=== PATIENT | female | born 1965 | race Caucasian/White ===

== ENCOUNTER 2021-12-03 08:47 | Outpatient (REF) | payer OTHER, SELFPAY ==
[2021-12-03 10:32] LABS: MANUAL DIFF FLAG NO
[2021-12-03 10:35] LABS: Basophils Absolute Auto 0.1 X10*3/uL (0.0-0.2); Basophils Percent Auto 1.4 % (0-2); Eosinophils Absolute Auto 0.2 X10*3/uL (0.0-0.4); Eosinophils Percent Auto 4.8 % (0-4); Hematocrit 37.3 % (37.0-47.0); Hemoglobin 12.5 g/dl (12.0-16.0); Imm Gran Abs Auto 0.01 X10*3/uL (0.00-0.03); Imm Gran Pct Auto 0.2 % (0.0-0.4); Lymphocytes Absolute Auto 1.7 X10*3/uL (1.2-4.9); Lymphocytes Percent Auto 35.4 % (20-40); Mean Corpuscular HGB Conc 33.5 g/dl (31.0-35.0); Mean Corpuscular Hemoglobin 29.8 pg (27.0-33.0); Mean Corpuscular Volume 88.8 fL (80.0-98.0); Mean Platelet Volume 10.1 fL (9.4-12.3); Monocytes Absolute Auto 0.3 X10*3/uL (0.1-1.2); Monocytes Percent Auto 6.2 % (2-11); Neutrophils Absolute Auto 2.5 x10*3/uL (2.0-8.3); Platelet Count 329 X10*3/uL (160-400); Red Cell Distribution Width 11.9 % (11.0-16.0); White Blood Count 4.8 X10*3/uL (4.8-10.8)
[2021-12-03 10:46] LABS: Anion Gap 13 (12-20); Blood Urea Nitrogen 11 mg/dL (9-16); Calcium 9.9 mg/dL (8.4-10.2); Carbon Dioxide 26 mmol/L (22-29); Chloride 106 mmol/L (96-108); Cholesterol 155 mg/dL; Estimated Glomerular Filt Rate > 60; Glucose Random 99 mg/dL (60-115); Sodium 141 mmol/L (135-145)
[2021-12-03 10:52] LABS: Estimated Average Glucose 111 mg/dL; Hemoglobin A1c % 5.5 %
== END 2021-12-03 08:48 | disposition home or self-care (01) ==
LOC: HO.WFDLDS 08:47
PROVIDERS: Visit Provider Internal Medicine
DX: Z83.3 Family history of diabetes mellitus (principal)
CPT/HCPCS: 36415; 80048; 82465; 83036; 85025

== ENCOUNTER 2023-02-07 12:33 | Outpatient (REF) | payer OTHER, SELFPAY ==
[2023-02-07 13:09] LABS: MANUAL DIFF FLAG NO
[2023-02-07 13:22] LABS: Basophils Absolute Auto 0.1 X10*3/uL (0.0-0.2); Basophils Percent Auto 0.9 % (0-2); Eosinophils Absolute Auto 0.3 X10*3/uL (0.0-0.4); Eosinophils Percent Auto 3.3 % (0-4); Hematocrit 39.3 % (37.0-47.0); Hemoglobin 13.2 g/dl (12.0-16.0); Imm Gran Abs Auto 0.02 X10*3/uL (0.00-0.03); Imm Gran Pct Auto 0.2 % (0.0-0.4); Lymphocytes Absolute Auto 1.5 X10*3/uL (1.2-4.9); Lymphocytes Percent Auto 17.3 % (20-40); Mean Corpuscular HGB Conc 33.6 g/dl (31.0-35.0); Mean Corpuscular Hemoglobin 29.7 pg (27.0-33.0); Mean Corpuscular Volume 88.5 fL (80.0-98.0); Mean Platelet Volume 9.3 fL (9.4-12.3); Monocytes Absolute Auto 0.4 X10*3/uL (0.1-1.2); Monocytes Percent Auto 4.9 % (2-11); Neutrophils Absolute Auto 6.2 x10*3/uL (2.0-8.3); Neutrophils Percent Auto 73.4 % (45-73); Platelet Count 321 X10*3/uL (160-400); Red Blood Count 4.44 X10*6/uL (4.20-5.50); White Blood Count 8.5 X10*3/uL (4.8-10.8)
[2023-02-07 13:26] LABS: Estimated Average Glucose 108 mg/dL; Hemoglobin A1c % 5.4 %
[2023-02-07 14:23] LABS: Alanine Aminotransferase 31 U/L (0-31); Albumin Level 4.8 g/dL (3.5-5.0); Alkaline Phosphatase 67 U/L (39-117); Anion Gap 16 (12-20); Aspartate Amino Transferase 23 U/L (5-31); Bilirubin Total 0.6 mg/dL (0.0-1.0); Blood Urea Nitrogen 7 mg/dL (9-16); Calcium 10.3 mg/dL (8.4-10.2); Carbon Dioxide 24 mmol/L (22-29); Chloride 107 mmol/L (96-108); Estimated Glomerular Filt Rate > 60; Glucose Random 100 mg/dL (60-115); Potassium 4.1 mmol/L (3.3-5.1); Sodium 143 mmol/L (135-145)
[2023-02-08 05:53] LABS: Lyme Abs Screen <0.90 index
== END 2023-02-07 12:34 | disposition home or self-care (01) ==
LOC: HO.10HDL 12:33
PROVIDERS: Visit Provider Internal Medicine
DX: R73.03 Prediabetes (principal); T14.8XXA Other injury of unspecified body region, initial encounter; W57.XXXA Bitten or stung by nonvenomous insect and other nonvenomous arthropods, initial encounter
CPT/HCPCS: 36415; 80053; 83036; 85025; 86617; 86618

== ENCOUNTER 2023-08-29 11:44 | Outpatient (REF) | payer OTHER, SELFPAY ==
[2023-08-30 07:15] LABS: HBS Num1 152.76 mIU/mL (0-7.99); ~Hepatitis B Surface Antibody REACTIVE (Nonreactive)
[2023-08-31 07:33] LABS: Mumps Virus IgG Antibody <9.00 AU/mL; Rubeola IgG (Measles) >300.00 AU/mL
== END 2023-08-29 11:45 | disposition home or self-care (01) ==
LOC: HO.10HDL 11:44
PROVIDERS: Visit Provider Internal Medicine
DX: Z01.84 Encounter for antibody response examination (principal)
CPT/HCPCS: 36415; 86706; 86735; 86765; 86787

== ENCOUNTER 2024-07-24 08:09 | Outpatient (REF) | payer BC, SELFPAY ==
--- NOTE | ~2024-07-24 | PE_ITS ---
EXAMINATION: Fluorine-18 FDG PET/CT Scan CLINICAL INDICATION: Initial treatment management. Multiple pulmonary nodules. PROCEDURE: 65 minutes following the intravenous administration of 15.0 mCi of fluorine 18 FDG, images from the base of the skull to the mid thighs were obtained using a combined PET/CT scanner with CT scan based attenuation correction. No oral contrast was administered. No intravenous contrast was administered. Transverse, coronal, sagittal, and volume reconstruction projections were obtained. The patient's blood glucose as determined by a finger stick, was 103 mg/dl immediately prior to injection. Total CT exam dose-length product 564.08 mGy-cm * These CT images were obtained using dose optimization techniques as appropriate, variously including the following: Automated exposure control * Adjustment of mA and/or kV according to patient size (this includes techniques or standardized protocols for targeted exams where dose is matched to indication/reason for exam; i.e. extremities or head) * Use of iterative reconstruction technique COMPARISON: No previous PET CT scan is available for comparison. CT scan of the chest dated 03/27/2017 is available for comparison. The report of a more recent CT scan of the chest dated 07/13/2024, performed at [facility] is available, but the images from that study are not available for review. FINDINGS: (Slice numbers described in this report are numbered superiorly to inferiorly with slice #1 in the head) NECK AND VISUALIZED HEAD: No foci of abnormal FDG activity are noted. The distribution of FDG activity is physiological. There is no cervical lymphadenopathy. THORAX: Multiple pulmonary nodules are present involving all lung lobes. The largest of these are FDG avid. These include a posterior pleural-based left lower lobe nodule showing SUVmax 5.7, slice 92/267 measuring 1.5 x 0.9 cm in largest transverse dimensions; a posterolateral left lower lobe nodule showing SUVmax 3.9, slice 82/267 measuring 1.3 x 0.8 cm in largest transverse dimensions; a pleural-based anterolateral right upper lobe nodule showing SUVmax 4.2, slice 67/267 measuring 0.9 x 0.6 cm in largest transverse dimensions; and a lateral right middle lobe nodule showing SUVmax 2.9, slice 88/267 measuring 0.9 x 0.8 cm in largest transverse dimensions. Multiple additional nodules are present. There is no pleural or pericardial fluid or pneumothorax. There is a confluent mass of FDG avid lymph nodes in the right axilla showing SUVmax 7.3, slice 72/267. This measures 3.2 x 1.5 cm in largest transverse dimensions. A few additional subcentimeter right axillary lymph nodes are too small to be characterized on the FDG PET images. There is no left axillary lymphadenopathy, or mediastinal lymphadenopathy. ABDOMEN AND PELVIS: There are no foci of abnormal FDG activity in the abdomen or pelvis. The liver and spleen are unremarkable. A densely peripherally calcified gallbladder calculus is present measuring 3.0 x 2.8 cm in largest transverse dimensions and approximately 5.5 cm cephalocaudad. There is no associated abnormal FDG activity in the gallbladder. The kidneys, adrenal glands, and pancreas are unremarkable. There is mild FDG activity throughout the gastrointestinal tract without a suspicious focal component, likely physiological. There is diverticulosis without evidence of diverticulitis. The hollow viscera are otherwise unremarkable. The pelvic organs are unremarkable. There is no retroperitoneal, mesenteric, pelvic or inguinal lymphadenopathy. MUSCULOSKELETAL: There are no foci of abnormal FDG activity in the osseous structures. There is mildly increased FDG activity in both shoulders, most prominently in the right glenohumeral articulation, likely arthritic. There is a mild thoracolumbar scoliosis with lumbar convexity to the left. There are degenerative changes in the spine but no suspicious sclerotic or lytic lesions are visualized. VASCULAR: No significant abnormalities are present. Reference SUVmax Levels: Mediastinal Blood Pool: 1.6, Slice 78/267 Liver: 3.3, Slice 103/267 PET/PET CT fusion skull to thigh IMPRESSION: 1. Multiple FDG avid pulmonary nodules are present, as well as additional nodules which are too small to be characterized on the FDG PET images. These are most consistent with malignant metastatic disease. 2. FDG avid right axillary lymph node mass is also likely metastatic in etiology. This would be amenable to ultrasound-guided fine-needle aspirate or excisional biopsy. 3. No additional abnormalities suspicious for other metastatic or malignant lesions are noted. 4. A large gallbladder calculus is present. This could be further characterized with ultrasonography, if clinically indicated. Electronically signed by: Alek Camejo MD 07/27/2024 10:18 AM [facility]
== END 2024-07-24 08:10 | disposition home or self-care (01) ==
LOC: HO.PET 08:09
PROVIDERS: PCP Internal Medicine Medical Oncology; Visit Provider Internal Medicine Medical Oncology
DX: Z13.89 Encounter for screening for other disorder (principal)

== ENCOUNTER 2024-12-03 13:20 | Outpatient (AMB) | payer BC, SELFPAY ==
--- NOTE | 2024-12-03 13:25 | A.OFFPC_ITS ---
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 Father No problems noted. Social History Housing: House Patient Tobacco Use Status: Never used Tobacco e-Cigarette/Vaping Use: Never Used service: No Current occupational status: employed Cognitive needs: No Hearing needs: No Vision needs: Yes (reading glasses) Questionnaire PHQ-9 Over the last 2 weeks, how often have you been bothered by any of the following problems? 1. Little interest or pleasure in doing things: not at all 2. Feeling down, depressed, or hopeless: not at all 3. Trouble falling or staying asleep, or sleeping too much: not at all 4. Feeling tired or having little energy: not at all 5. Poor appetite or overeating: not at all 6. Feeling bad about yourself - or that you are a failure or have let yourself or your family down: not at all 7. Trouble concentrating on things, such as reading the newspaper or watching television: not at all 8. Moving or speaking so slowly that other people could have noticed. Or the opposite - being so fidgety or restless that you have been moving around a lot more than usual: not at all 9. Thoughts that you would be better off or of hurting yourself in some way: not at all Total score: 0 Source: Developed by Drs. Felipe Huerta, Alejandra Pereira, Abdirizak Jovel and colleagues, with an educational fifi from [employer]. Thrive Questionnaire Date Thrive assessed: 12/03/24 I am a: Patient Within the past 12 months, did the food you bought not last and you didn't have the money to get more?: Never true Within the past 12 months, did you worry whether your food would run out before you got money to buy more?: Never true Do you have trouble paying for medicines?: No Do you have trouble getting transportation to medical appointments?: No Do you have trouble paying your heating and electricity bill?: No Do you have trouble taking care of your child, family member or friend?: No Do you have trouble with day-to-day activities such as bathing, preparing meals, shopping, managing finances, etc.?: No Are you currently unemployed and looking for a job?: No Are you interested in more education?: No THRIVE Score: 0 AUDIT C Alcohol Use Questionnaire (AUDIT-C) 1. How often do you have a drink containing alcohol?: Never 3. How often do you have six or more drinks on one occasion?: Never Total Score: 0 EL-7 AMB Questionnaire EL-7 Date LE - 7 assessed: 12/03/24 Feeling nervous, anxious, or on edge: 0 = Not at all Not being able to stop or control worryin = Not at all Worrying too much about different things: 0 = Not at all Trouble relaxin = Not at all Being so restless that it is hard to sit still: 0 = Not at all Becoming easily annoyed or irritable: 0 = Not at all Feeling afraid as if something awful might happen: 0 = Not at all Total EL-7 score (0-4 normal; 5-9 mild; 10-14 moderate; 15-21 severe): 0 Source: Developed by Drs. Felipe Huerta, Abdirizak Maher and colleagues, with an educational fifi from [employer]. Physical exam (Primary Care) Vital Signs: Last Vital Signs Temp 97.6 F 12/03/24 13:26 Pulse 82 12/03/24 13:26 BP 120/70 12/03/24 13:26 Pulse Ox 99 12/03/24 13:26 Oxygen Delivery Method Room Air 12/03/24 13:26 BMI result Body Mass Index 25.8 Tobacco/Smoking Status: Tobacco use Status Tobacco use date assessed 12/03/24 12/03/24 13:37 Patient Tobacco Use Status Never used Tobacco 12/03/24 13:37 e-Cigarette/Vaping Use Never Used 12/03/24 13:37 PHQ-9: PHQ-9 Score PHQ-9: Total score 0 12/03/24 13:37 Thrive Assessment: Date of Thrive Assessment Date Thrive assessed 12/03/24 12/03/24 13:37 Coding Level of Care Code New Pt Level 4 (04302) Complex EM visit Add On G2211 Diagnoses 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 Receiving immunologic treatment. Needs MMR titres. Plan History of Present Illness The patient is a 59-year-old female presenting with concerns about metastatic basal cell carcinoma and some preventive care considerations. The initial concern of shoulder pain in the previous fall led to the discovery of metastatic disease. She relays an extensive history with Dr. Dye and consultations with dermatologists and surgical oncologists. 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 Despite imaging and biopsies indicating metastasis, an exact primary skin location remains unidentified. Follow-up on previously suspicious mammogram results provided clearance, while colonoscopy screening is yet outstanding despite a pertinent family history. The patient is actively undergoing cemiplimab infusions under the care of [facility] and remains physically active in her daily life. 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 - Caregiver for two grandchildren, ages three and seven - Maintains a regular exercise routine, walking four to five miles daily - Consumes an organic diet Review of Systems - Musculoskeletal: Reports shoulder pain (previous) - Respiratory: Reports metastatic involvement in lungs - Integumentary: Reports diagnosis of basal cell carcinoma - Gastrointestinal: Denies any known issues, recognizes need for screening - Endocrine: Reports following thyroid levels during infusions - Family History: Positive for colon cancer Physical Exam General: Cooperative and healthy appearing Nutritional Appearance: Well nourished Orientation/consciousness: Patient oriented x3 Limitations: No limitations Head: Normal to inspection General: Appearance normal, both eyes and all related structures Neck: Normal visual inspection Chest: Normal palpation of entire chest wall Respiratory: Biopsy results from lungs indicate presence of cancer. ormal respiratory effort Neurology: Patient oriented x3. Results - Labs: Recent biopsy confirms metastatic involvement in axillary lymph nodes and lungs - Imaging: PET and CT scans show lung involvement by basal cell carcinoma - Biopsies: Fine needle biopsy of axillary nodes indicates three positive for malignancy Plan After reviewing the current course of treatment for metastatic basal cell carcinoma, I advised continuing cemiplimab infusions under current supervision. Due to pertinent family history, I stressed the importance of completing a colonoscopy, suggesting traditional endoscopy over Cologuard for detection of precancerous polyps. I reiterated regular follow-up and potential adjustment of treatment based on response and symptomatology. Additionally, I recommended regular monitoring of thyroid function given the therapeutic regimen and encouraged lifestyle maintenance. Patient was informed and verbally consented to the use of an ambient scribe for clinic note documentation during this visit. Discussion Notes I explained the seriousness of managing metastatic basal cell carcinoma and assured the patient our focus is on controlling the disease's progression with ongoing cemiplimab infusions. We discussed the implications of postponed colon cancer screening and the benefits of early detection relative to her family history. Agreement was reached on scheduling a colonoscopy. I reiterated that monitoring thyroid function remains a parallel priority to adjust treatment as needed. I encouraged proactive symptom reporting and emphasized the importance of work-life balance. Patient Instructions - Continue with cemiplimab infusions as scheduled - Schedule colonoscopy as soon as feasible - Monitor and report any new symptoms, especially related to gastrointestinal or respiratory systems - Maintain current exercise and dietary habits - Submit all relevant lab results regarding thyroid monitoring from [facility] to my office - Notify me immediately if there are significant changes in health or any new concerns arise Orders: Orders MMR IgG Measles Mumps Rubella Today Z11.9 - Encounter for screening for infectious and parasitic diseases, unspecified Referrals Gastroenterology Referral Z12.11 - Encounter for screening for malignant neoplasm of colon Medications: New alprazolam (Xanax) 0.5 mg PO BEDTIME PRN 7 tabs 0RF anxiety
[2024-12-03 13:26] VITALS: BP 120/70; PULSE 82; TEMP 36.4; O2SAT 99; BMI 25.8
--- OUTSIDE RECORDS SUMMARY | 2024-12-03 15:19 | XMS_ITS ---
Author Organization Felipe Nagy III, MD Address [address] [place] [address] [address] [place] [address] Care Team Providers Care Plumber Supervisor Name Role Phone Bobby Shin MD Primary Care Provider Felipe Herrera [phone] Allergies Allergen (clinical drug ingredient) Drug/Non Drug Allergy documented on EMR Reaction Allergy Type Onset Date Status No Known Drug Allergy Unknown Drug Allergy Active Shellfish (FN) Shellfish-derived Products Unknown Drug Allergy Active REASON FOR VISIT Metastatic skin cancer Social History Tobacco Use: Social History Observation Description Date Details (start date - stop date) Never Smoker NA - NA Sex Assigned At : Social History Observation Description Sex Assigned At Female Tobacco Control (Standard) Question Answer Notes Tobacco use: Nonsmoker Additional Findings: Tobacco non-user Aggressive nonsmoker Vital Signs Height 60 in 10/10/2024 Weight 153 lbs 10/10/2024 BMI 29.88 kg/m2 10/10/2024 Encounters Encounter Location Date Provider Diagnosis Felipe Nagy III, MD [address] [place] [address] [id number] 10/10/2024 Felipe Nagy History of skin cancer Z85.828 ; Axillary adenopathy R59.0 and Overweight E66.3 Assessments Encounter Date Diagnosis (ICD Code) Assessment Notes Treatment Notes Treatment Clinical Notes 10/10/2024 History of skin cancer (ICD-10 - Z85.828) She has had several skin cancers removed from her head and shoulder. The adenopathy in the right axilla shows a carcinoma with squamous and basaloid features. It is likely a squamous carcinoma. She has been referred to medical oncology at the [facility] in genetic testing has been done. The results are pending at this time. We are waiting to see if there is a driving mutation. She will be under the care of Dr. Verdugo. She has a significant need for careful repetitive explanations and emotional support. I agreed to see her once a month and to have any phone call she desires to answer questions and to make the recommendations of her physicians understandable. 10/10/2024 Axillary adenopathy (ICD-10 - R59.0) 10/10/2024 Overweight (ICD-10 - E66.3) Her body mass index is currently 29. Discussed weight loss strategy. Plan Of Treatment Next Appt Details Follow Up: 1 month, Reason: Office visit Progress Notes * SUZANNA MOLINADOB: [birth year] (59 yo F)Acc No.[id number]:10/10/2024 Patient:?SUZANNA MOLINA Provider:?Felipe Nagy MD :1965???Age:59 Y???Sex:Female D ate:10/10/2024 Address:[address] [place], [place] [id number] Pcp:Bobby Shin MD Subjective: * Chief Complaints: * ???Metastatic skin cancer * HPI: ???:?Telehealth?Location of provider rendering services:?{...} [address] [place] [address] ?Location of patient:?address listed in demographics for today's visit ?Patient identification confirmed using:?Name, ?Telehealth method:?Telephone only. Patient not visible to care provider. ?Consent:?Patient verbally consented to treatment, Patient verbally consented to billing insurance company, Patient informed of any privacy concerns related to method of visit ?Total time spent with patient (mins)?15 ? The patient, a 59-year-old female, presented with a history of cancer. She reported that she had been diagnosed with three different types of cancer, including squamous features basal and basaloid features, which she believed to be skin cancer. She had recently undergone a procedure to remove lymph nodes, which were sent to a molecular biology lab for further testing. The patient reported feeling a sense of relief after the lymph nodes were removed, but also expressed concern about the time it was taking to receive the results. She also reported experiencing pain in her shoulder, which she was managing with ice, ibuprofen, and Tylenol. * ROS:?General/Constitutional:?Admits?pain,?Dull ache right axilla.?Chills?denies.?Fatigue?admits.?Fever?denies.?ENT:?Decreased hearing?denies.?Respiratory:?Cough?denies.?Cardiovascular:?Chest pain with exertion?denies.?Dyspnea on exertion?denies.?Shortness of breath?denies.?Gastrointestinal:?Constipation?denies.?Decreased appetite?denies.?Diarrhea?denies.?Heartburn?denies.?Nausea?denies.?Rectal bleeding?denies.?Vomiting?denies.?Hematology:?bruising?denies.?petechiae?denies.?Swollen glands?none have been noted.?Genitourinary:?Frequent urination?at night.?Musculoskeletal:?Muscle aches?denies.?Painful joints?denies.?Sciatica?denies.?Weakness?denies.?Skin:?Itching?denies.?Rash?denies.?Admits?Skin cancer.?Skin lesion(s)?denies.?Neurologic:?Difficulty speaking?denies.?Dizziness?denies.?Headache?denies.?Low back pain?denies.?Psychiatric:?Depressed mood?which is moderate.? * Medical History:? * Surgical History:?Skin cance r excision right shoulder [id number] Skin cancer excision left forehead Lymph node removal * Hospitalization/Major Diagno stic Procedure:?No history * Family History:?Father: [employer] 86 yrs, nNonmelanoma skin cancer, Spindle cell carcinoma metastatic to bone of skull, diagnosed with Cancer.?Mother: alive 94 yrs, Coronary artery disease.?Children: alive.?Daughter(s): alive.?1 brother(s) , 1 sister(s) . 2 daughter(s) - healthy. .? ? She has a brother who is alive and well with a history of skin cancer.? She had one sister who at the age of 29 of a brain tumor.She has 2 daughters, 29 and 25 for healthy and well. She has 2 healthy grandchildren.? She is not aware of any family history of mental illness or addiction or substance use disorder. 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 She is .? She has 2 healthy children and 2 grandchildren.? She is postmenopausal.? She has never had surgery other than skin excisions. She has never smoked.? She does not use illegal drugs or use alcohol to excess. * Medications:?None * Allergies:?No Known Drug All ergyShellfish-derived Productsno[Allergies Verified] Objective: * Vitals:?Ht: 60, Wt: 153, BMI :29.88, Ht-cm: 152.4, Wt-k.4. Assessment: * Assessment: 1.?History of skin cancer - Z85.828 (Primary)???Notes :She has had several skin cancers removed from her head and shoulder.? The adenopathy in the right axilla shows a carcinoma with squamous and basaloid features.? It is likely a squamous carcinoma.? She has been referred to medical oncology at the [facility] in genetic testing has been done.? The results are pending at this time.? We are waiting to see if there is a driving mutation.? She will be under the care of Dr. Verdugo.? She has a significant need for careful repetitive explanations and emotional support.? I agreed to see her once a month and to have any phone call she desires to answer questions and to make the recommendations of her physicians understandable.???2.?Axillary adenopathy - R59.0???3.?Overweight - E66.3???Notes :Her body mass index is currently 29.? Discussed weight loss strategy.??? Plan: * Treatment: * Procedure Codes:? * Preventive Medicine:? ??Counseling:?Care goal follow-up plan:?Counseling for abnormal BMI given?Yes ?Above Normal BMI Follow-up?Dietary management education, guidance, and counseling, Dietary needs education, Exercise promotion: strength training * Follow Up:?1 month (Reason: Office visit) * Images: * Sign off status: Completed true * Provider:?Felipe Nagy MD Date:?09/22 Generated for Yosvany hull/Yoni/Aidanitting on:?12/03/2024 03:19 PM EDT History and Physical Notes * HPI (History of Present Illness) Category Sub-Category Detail Notes Telehealth Location of [facility] rendering services:: {...} [address] [place] [id number] Location of patient:: address listed in demographics for today's visit Patient identification confirmed using:: Name, Telehealth method:: Telephone only. Pat ient not visible to care provider. Consent:: Patient verbally c onsented to treatment, Patient verbally consented to billing insurance company, Patient informed of any privacy concerns related to method of visit Total time spent with patient (mins): 15
--- OUTSIDE RECORDS SUMMARY | 2024-12-03 15:20 | XMS_ITS ---
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 Name Role Phone Bobby Shin MD Primary Care Provider Felipe Herrera [phone] Allergies Allergen (clinical drug ingredient) Drug/Non Drug Allergy documented on EMR Reaction Allergy Type Onset Date Status No Known Drug Allergy Unknown Drug Allergy Active Shellfish (FN) Shellfish-derived Products Unknown Drug Allergy Active REASON FOR VISIT Squamous cell carcinoma of the skin stage IV, Anxiety, Axillary adenopathy, Her weight Social History Tobacco Use: Social History Observation Description Date Details (start date - stop date) Never Smoker NA - NA Sex Assigned At : Social History Observation Description Sex Assigned At Female Tobacco Control (Standard) Question Answer Notes Tobacco use: Nonsmoker Additional Findings: Tobacco non-user Aggressive nonsmoker Problems Problem Type SNOMED Code ICD Code Onset Dates Problem Status W/U Status Risk Notes Problem [id number] Situational anxiety (F41.8) Active confirmed We discussed the situation at length. I left it open that she could call me in the future be beneficial. 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 Receiving intravenous treatments at the [facility]. Records have been requested. 11/16/2024 Axillary adenopathy (ICD-10 - R59.0) The axillary incision has healed. She has no pain in that area. 11/16/2024 Overweight (ICD-10 - E66.3) Her body mass index is currently 29. Discussed weight loss strategy. 11/16/2024 Situational anxiety (ICD-10 - F41.8) We discussed the situation at length. I left it open that she could call me in the future be beneficial. Plan Of Treatment Next Appt Details Follow Up: prn, Reason: ov Progress Notes * SUZANNA MOLINADOB: 6 (59 yo F)Acc No.[id number]:11/16/2024 Patient:?SUZANNA MOLINA Provider:?Felipe Nagy MD :1965???Age:59 Y???Sex:Female D ate:11/16/2024 Address:[address] [place] [address], 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 He was referred to [facility] medical oncology where treatment was begun.? However she has changed her provider to the [facility] where she is receiving intravenous chemotherapy.? She is tolerating it well.? She is quite concerned about her future.? We discussed her disease and her prognosis at length today.? She will call me back for an appointment at any time should she feel that it would be helpful in her coping with illness or hher understanding of her treatment.? She will remain with her primary care physician and the staff at [facility]. ?Telehealth?Location of provider rendering services:?{...} [address] [facility] [address] ?Location of patient:?address listed in demographics for today's visit ?Patient identification confirmed using:?Name, ?Telehealth method:?Telephone only. Patient not visible to care provider. ?Consent:?Patient verbally consented to treatment, Patient verbally consented to billing insurance company, Patient informed of any privacy concerns related to method of visit ?Total time spent with patient (mins)?15 * ROS:?General/Constitutional:?pain?only normal aches and pains.?Chills?denies.?Fatigue?admits.?Fever?denies.?ENT:?Decreased hearing?denies.?Respiratory:?Cough?denies.?Cardiovascular:?Chest pain with exertion?denies.?Dyspnea on exertion?denies.?Shortness of breath?denies.?Gastrointestinal:?Constipation?occasional.?Decreased appetite?denies.?Diarrhea?denies.?Heartburn?occasional.?Nausea?denies.?Rectal bleeding?denies.?Vomiting?denies.?Hematology:?bruising?denies.?petechiae?denies.?Swollen glands?none have been noted.?Genitourinary:?Frequent urination?at night.?Musculoskeletal:?Muscle aches?denies.?Painful joints?denies.?Sciatica?denies.?Weakness?denies.?Skin:?Itching?denies.?Rash?denies.?Skin lesion(s)?denies.?Neurologic:?Difficulty speaking?denies.?Dizziness?denies.?Headache?denies.?Low back pain?denies.?Psychiatric:?Depressed mood?Anxious.? * Medical History:? * Surgical History:?Skin cance r excision right shoulder [id number] Skin cancer excision left forehead Lymph node [...] :29.88, Ht-cm: 152.4, Wt-k.4. 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 Receiving intravenous treatments at the [facility].? Records have been requested.???2.?Axillary adenopathy - R59.0???Notes :The axillary incision has healed.? She has no pain in that area.???3.?Overweight - E66.3???Notes :Her body mass index is currently 29. Discussed weight loss strategy.???4.?Situational anxiety - F41.8???Notes :We discussed the situation at length.? I left it open that she could call me in the future be beneficial.??? Plan: * Treatment: * Procedure Codes:? * Preventive Medicine:? ??Counseling:?Care goal follow-up plan:?Counseling for abnormal BMI given?Yes ?Above Normal BMI Follow-up?Dietary management education, guidance, and counseling, Dietary needs education, Exercise promotion: strength training, Exercise promotion: stretching, Feeding regime, Giving encouragement to exercise, Lifestyle education regarding diet, Nutrition / feeding management, Nutrition therapy, Prescribed activity/exercise education, Prescribed diet education, Prescribed dietary intake, Special diet education, Weight monitoring , Intervention, Order not done: Medical or Other reason not done * Follow Up:?prn (Reason: ov) * Images: * Sign off status: Completed true * Provider:?Felipe Nagy MD Date:?10/21 Generated for Yosvany hull/Yoni/eTransmitting on:?12/03/2024 03:19 PM EDT History and Physical Notes * HPI (History of Present Illness) Category Sub-Category Detail Notes Telehealth Location [facility]:: {...} [address] [facility] [address] Location of patient:: address listed in demographics for today's visit Patient identification confirmed using:: Name, Telehealth method:: Telephone only. Ingrid ent not visible to care provider. Consent:: Patient verbally c onsented to treatment, Patient verbally consented to billing insurance company, Patient informed of any privacy concerns related to method of visit Total time spent with patient (mins): 15
--- OUTSIDE RECORDS SUMMARY | 2024-12-03 15:21 | XMS_ITS ---
Author Organization Felipe Nagy III, MD Address [address] [place] [address] Care Team Providers Care Real Estate Executive Assistant Name Role Phone Bobby Shin MD Primary Care Provider Felipe Herrera [phone] REASON FOR VISIT Message Social History Sex Assigned At : Social History Observation Description Sex Assigned At Female Encounters Encounter Location Date Provider Diagnosis Felipe Nagy III, MD [address] [place] [address] [place] [address] 11/07/2024 Felipe Nagy Plan Of Treatment No Information Progress Notes * ABBYDARIONARIELLADOB: 6 (59 yo F)Acc No.[id number]:11/07/2024 Patient:?SUZANNA MOLINA :1965???Age:59 Y???Sex:Female Address:[address] [place], [place] [address] [place], [address] * true * Date:? Generated for Printi kurtis/Yoni/eTransmitting on:?12/03/2024 03:21 PM EDT
== END 2024-12-03 14:01 | disposition home or self-care (01) ==
LOC: HO.HMCHD 13:20
PROVIDERS: PCP Internal Medicine; Visit Provider Internal Medicine
DX: C44.92 Squamous cell carcinoma of skin, unspecified (principal)

== ENCOUNTER → 2024-12-03 13:20 | Outpatient (BNVA) | payer BC, SELFPAY | PROVIDERS: PCP Internal Medicine; Visit Provider Internal Medicine ==

== ENCOUNTER 2025-06-10 09:15 | Outpatient (AMB) | payer BC, SELFPAY ==
[2025-06-10 08:10] VITALS: BP 140/80; PULSE 84; TEMP 36.6; O2SAT 98; BMI 26.0
--- NOTE | 2025-06-10 08:10 | MHC.PC.OV ---
Vital Signs 06/10/25 08:10 Height 5 ft 5 in Weight 156 lb BMI 26.0 BP 140/80 H Blood Pressure Location Rt brachial Position Sitting Pulse 84 Pulse Source Pulse Oximeter Temp 97.9 F Temp Source Temporal Artery Scan Pulse Oximetry (%) 98 Oxygen Delivery Method Room Air Intake Visit Reasons: 6 Month F/U Matcher Operator Required: No Accompanied by: Self / Same As Patient Allergies No Known Allergies (No Known Allergies*) Allergy (Verified 06/10/25 08:10) Medication List - Last Reconciled 06/11/25 by GARRY Gonzalez escitalopram oxalate 5 mg PO DAILY lorazepam mg PO mupirocin calcium 2% 1 appl topical TID Tobacco use date assessed: 06/10/25 Dental Screening Dental Screen Date: 06/10/25 Did you have a dental visit in the last 12 months?: Yes Did you have a dental problem in the last 6 months where you did not have access to dental care?: No HPI HPI Comments History of Present Illness Details The patient is a 60-year-old female presenting with metastatic basal cell carcinoma and anxiety to establish care. She is undergoing treatment with cemiplimab for metastatic basal cell carcinoma, showing good response in the lungs but persistent axillary lymphadenopathy. Scans between February and April showed no progression or resolution, and the tumor board decided to continue treatment as she is not experiencing significant side effects. She is followed at [facility]. The patient experiences significant anxiety, exacerbated by her cancer diagnosis and treatment. She previously tried sertraline and Xanax, which were not effective, and currently uses lorazepam for sleep, which she finds effective. She has a history of paronychia on her right middle finger, managed with soaking and bacitracin but it continues to come back. She is reluctant to take oral antibiotics due to possible interaction with her cancer treatment. Preventative care includes a referral for a Pap smear, a recent mammogram in August, and a Cologuard test for colon cancer screening. Patient was informed and verbally consented to the use of an ambient scribe for clinic note documentation during this visit. 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 Father No problems noted. Social History Housing: House Patient Tobacco Use Status: Never used Tobacco e-Cigarette/Vaping Use: Never Used service: No Current occupational status: employed Cognitive needs: No Hearing needs: No Vision needs: Yes (reading glasses) Questionnaire PHQ-9 Over the last 2 weeks, how often have you been bothered by any of the following problems? 1. Little interest or pleasure in doing things: not at all 2. Feeling down, depressed, or hopeless: nearly every day (anxiety) 3. Trouble falling or staying asleep, or sleeping too much: nearly every day (trouble sleeping) 4. Feeling tired or having little energy: not at all 5. Poor appetite or overeating: not at all 6. Feeling bad about yourself - or that you are a failure or have let yourself or your family down: not at all 7. Trouble concentrating on things, such as reading the newspaper or watching television: not at all 8. Moving or speaking so slowly that other people could have noticed. Or the opposite - being so fidgety or restless that you have been moving around a lot more than usual: not at all 9. Thoughts that you would be better off or of hurting yourself in some way: not at all Total score: 6 Depression Screening Interpretation: Negative Depression Screening Done: Yes 24330 - PHQ-9 Billing: Yes Source: Developed by Drs. Felipe Huerta, Alejandra Pereira, Abdirizak Jovel and colleagues, with an educational fifi from [employer]. Thrive Questionnaire Date Thrive assessed: 06/10/25 I am a: Patient Within the past 12 months, did the food you bought not last and you didn't have the money to get more?: Never true Within the past 12 months, did you worry whether your food would run out before you got money to buy more?: Never true Do you have trouble paying for medicines?: No Do you have trouble getting transportation to medical appointments?: No Do you have trouble paying your heating and electricity bill?: No Do you have trouble taking care of your child, family member or friend?: No Do you have trouble with day-to-day activities such as bathing, preparing meals, shopping, managing finances, etc.?: No Are you currently unemployed and looking for a job?: No Are you interested in more education?: No THRIVE Score: 0 AUDIT C Alcohol Use Questionnaire (AUDIT-C) 1. How often do you have a drink containing alcohol?: Never 3. How often do you have six or more drinks on one occasion?: Never Total Score: 0 EL-7 AMB Questionnaire EL-7 Date EL - 7 assessed: 06/10/25 Feeling nervous, anxious, or on edge: 3 = Nearly every day Not being able to stop or control worryin = Not at all Worrying too much about different things: 0 = Not at all Trouble relaxin = Not at all Being so restless that it is hard to sit still: 0 = Not at all Becoming easily annoyed or irritable: 0 = Not at all Feeling afraid as if something awful might happen: 0 = Not at all Total EL-7 score (0-4 normal; 5-9 mild; 10-14 moderate; 15-21 severe): 3 Source: Developed by Drs. Felipe Huerta, Alejandra Pereira, Abdirizak Jovel and colleagues, with an educational fifi from [employer]. EL-7 Assessment Billing EL-7 Assessment Tool: EL-7 Assessment 82134 Review of Systems Narrative CONSTITUTIONAL Negative HEAD/NECK Negative EAR/NOSE/MOUTH/THROAT Negative RESPIRATORY Negative CARDIOVASCULAR Denies chest pain, shortness of breath, or cough. GASTROINTESTINAL Denies constipation, diarrhea, or heartburn. SKIN paronychia on right third finger NEUROLOGICAL Negative PSYCHIATRIC Anxiety Physical exam (Primary Care) Vital Signs: Last Vital Signs Temp 97.9 F 06/10/25 08:10 Pulse 84 06/10/25 08:10 BP 140/80 H 06/10/25 08:10 Pulse Ox 98 06/10/25 08:10 Oxygen Delivery Method Room Air 06/10/25 08:10 BMI result Body Mass Index 26.0 GENERAL Well developed, Well nourished, in no apparent distress HEENT Head-Normocephalic Eyes- PERRLA, EOMI, Conjuctiva clear, lids WNL Ears- Canals clear, TMs WNL Mouth/Throat-No lesions, no erythema, no exudate Neck- Supple, No lymphadenopathy, thyroid WNL RESPIRATORY Normal I:E, Clear to auscultation CARDIOVASCULAR Regular, rate and rhythm, No murmurs or rubs GASTROINTESTINAL Soft, nontender, normal bowel sounds, no masses SKIN redness of 3rd finger right hand, no drainage NEUROLOGICAL Gait normal PSYCHIATRIC Oriented to person, place and time Mood and affect- anxious Appearance WNL Speech WNL Thought processes WNL Tobacco/Smoking Status: Tobacco use Status Tobacco use date assessed 06/10/25 06/10/25 08:11 Patient Tobacco Use Status Never used Tobacco 06/10/25 08:11 e-Cigarette/Vaping Use Never Used 06/10/25 08:11 PHQ-9: PHQ-9 Score PHQ-9: Total score 6 06/10/25 11:02 Depression Screening Interpretation: Negative Thrive Assessment: Date of Thrive Assessment Date Thrive assessed 06/10/25 06/10/25 08:11 Results Reviewed Results Reviewed: - Imaging: PET and CT scans conducted, showing no progression or resolution of axillary lymphadenopathy. Coding Level of Care Code Established Pt Est Pt Level 4 (19068) Patient Type Established Diagnoses Metastatic basal cell carcinoma (BCC) C44.91 Anxiety F41.9 Paronychia of finger of right hand L03.011 Health care maintenance Z00.00 Additional Codes PHQ-9 - 40052 - PHQ-9 Billing: Yes ([id number]) EL-7 Assessment Billing - EL-7 Assessment Tool: EL-7 Assessment 07378 ([id number]) Time Spent (min) 35 Comment Time spent on chart review, medication reconciliation, H&P, patient education, orders. Assessment & Plan Assessment & Plan (1) Metastatic basal cell carcinoma (BCC): Code(s): C44.91 - Basal cell carcinoma of skin, unspecified Category: Medical Plan: The patient is undergoing treatment with cemiplimab, showing good response in the lungs but persistent axillary lymphadenopathy. The tumor board recommended continuing the current treatment regimen as she is not experiencing significant side effects. Patient to continue to follow up with oncology (2) Anxiety: Code(s): F41.9 - Anxiety disorder, unspecified Category: Medical Plan: The patient experiences significant anxiety exacerbated by her cancer diagnosis and treatment. She previously tried sertraline and Xanax, which were not effective, and currently uses lorazepam for sleep, which she finds effective. A trial of escitalopram was recommended, starting at the lowest dose, to be taken in the morning. Patient to follow up in 3 months or sooner if symptoms persist or worsen. (3) Paronychia of finger of right hand: Code(s): L03.011 - Cellulitis of right finger Category: Medical Plan: The patient has been managing paronychia with soaking and topical antibiotics, but it has not resolved. She is advised to try mupirocin as a topical treatment before considering systemic antibiotics due to concerns about interactions with her immune therapy. Patient to follow up as needed if symptoms persist or worsen. (4) Health care maintenance: Code(s): Z00.00 - Encounter for general adult medical examination without abnormal findings Category: Medical Plan: A Cologuard test was ordered for colon cancer screening as an alternative to colonoscopy, considering the patient's concerns about interrupting her immune therapy. - Mammogram conducted in August The patient has not had a Pap smear in many years and will be referred to a meat hanger for screening. Plan During the visit, we discussed the continuation of cemiplimab for metastatic basal cell carcinoma, given the stable response and lack of significant side effects. We also addressed the patient's anxiety, exploring medication options such as escitalopram, and discussed the use of lorazepam for sleep. For paronychia, we recommended trying mupirocin before considering systemic antibiotics. Preventative care measures included ordering a Cologuard test for colon cancer screening and referring the patient for a Pap smear. Orders: Referrals Cologuard Test Z12.11 - Encounter for screening for malignant neoplasm of colon RN CARDIOVASCULAR ICU Referral Z12.4 - Encounter for screening for malignant neoplasm of cervix Medications: New mupirocin calcium 2% 1 appl topical TID 15 grams 0RF for finger escitalopram oxalate 5 mg PO DAILY 90 tabs 0RF for anxiety Patient Instructions: - Continue simiplimab treatment as advised by the oncology team. - Start escitalopram at the lowest dose in the morning and monitor for changes in anxiety levels. - Use mupirocin for paronychia and avoid systemic antibiotics unless necessary. - Complete the Cologuard test as instructed for colon cancer screening. - Attend the scheduled Pap smear appointment for cervical cancer screening. - Follow up in three months to review treatment progress and any new concerns.
== END 2025-06-10 09:56 | disposition home or self-care (01) ==
LOC: HO.HMCHD 09:16
PROVIDERS: PCP Internal Medicine; Visit Provider Physician Assistant Medical
DX: C44.91 Basal cell carcinoma of skin, unspecified (principal); F41.9 Anxiety disorder, unspecified; L03.011 Cellulitis of right finger; Z00.00 Encounter for general adult medical examination without abnormal findings

== ENCOUNTER → 2025-06-10 09:15 | Outpatient (BNVA) | payer BC, SELFPAY | PROVIDERS: PCP Internal Medicine; Visit Provider Physician Assistant Medical | DX: C44.91 Basal cell carcinoma of skin, unspecified (principal); F41.9 Anxiety disorder, unspecified; L03.011 Cellulitis of right finger; Z13.31 Encounter for screening for depression; Z13.39 Encounter for screening examination for other mental health and behavioral disorders | CPT/HCPCS: 96127 ==